=== PATIENT | female | born 1975 | race African-American/Black ===

== ENCOUNTER 2016-12-17 20:41 | Emergency (ER) | payer SELFPAY ==
[~2016-12-17] VITALS: Ht 165.1 cm; Wt 71.0 kg
[~2016-12-17 20:41] MED LIST: DICY1TAB26 PO; PANT20 PO; SUCR1S PO
[2016-12-17 20:44] VITALS: BP 139/81; PULSE 112; RESP 16; TEMP 98.1; O2SAT 100
[2016-12-17] MEDS ORDERED: MORPHINE SULFATE 4 MG/ML INJ IM ONE (21:15)
[2016-12-17 22:21] LABS: AUTOMATED NEUTROPHIL # 2.1 TH/MM3 (1.8-7.7); BASOPHIL # 0.1 TH/MM3 (0-0.2); BASOPHIL % 1.3 % (0.0-2.0); EOSINOPHIL % 0.8 % (0.0-4.0); HEMATOCRIT 31.8 % (35.0-46.0); HEMO FLAGS DIFF FINAL; LYMPH % 44.2 % (9.0-44.0); LYMPHOCYTE # 2.1 TH/MM3 (1.0-4.8); MEAN CELL VOLUME 75.8 FL (80.0-100.0); MEAN CORPUSCULAR HEMOGLOBIN 24.2 PG (27.0-34.0); MONO % 8.6 % (0.0-8.0); NEUT % 45.1 % (16.0-70.0); PLATELET COUNT 398 TH/MM3 (150-450); RED CELL DISTRIBUTION WIDTH 21.8 % (11.6-17.2); WHITE BLOOD COUNT 4.7 TH/MM3 (4.0-11.0)
[2016-12-17 22:46] LABS: ALT (GPT) 19 U/L (10-53)
[2016-12-17 22:47] LABS: ALKALINE PHOSPHATASE 85 U/L (45-117); TOTAL BILIRUBIN ADULT 0.1 MG/DL (0.2-1.0)
[2016-12-17 22:49] LABS: ANION GAP 6 MEQ/L (5-15); AST (GOT) 19 U/L (15-37); BICARBONATE 24.6 MEQ/L (21.0-32.0); BLOOD UREA NITROGEN 14 MG/DL (7-18); CHLORIDE 108 MEQ/L (98-107); GLOMERULAR FILTRATION RATE 95 ML/MIN (>89); POTASSIUM 3.7 MEQ/L (3.5-5.1); SODIUM (NA) 139 MEQ/L (136-145)
[2016-12-17 22:54] LABS: ALCOHOL LESS THAN 3 MG/DL (0-5)
--- NOTE | 2016-12-17 23:02 | PD ---
HPI Chief Complaint: Psychiatric Symptoms Time Seen by Provider: 21:01 Travel History International Travel<30 days: No Contact w/Intl Traveler<30days: No Traveled to known affect area: No History of Present Illness HPI Patient is a 41-year-old female who comes in because she says she is having thoughts of wanting to hurt someone. She says she [facility] to follow[facility]up regarding her fibromyalgia, and made a statement that her pain was so bad she just wanted to shoot herself. She says she is not suicidal at the time , but everyone upset her there. She reports going home and getting a call from her friend about some marital issues. She says this made her very angry and now she wants to hurt someone. She denies any medical complaints other than her chronic pain. She does take psychiatric medications, but says she is out of them. She denies hearing voices. PFSH Past Medical History Anemia: Yes Asthma: Yes Cardiovascular Problems: Yes (LOW BP) Thyroid Disease: Yes ?: Not LMP: CURRENT : 2 Para: 1 : 1 Past Surgical History Cholecystectomy: Yes (2011) Other Surgery: Yes (BILE DUCT STENT) Social History Alcohol Use: Yes (4 TIMES WEEKLY) Tobacco Use: Yes (/ PPD) Substance Use: No Allergies-Medications (Allergen,Severity, Reaction): Coded Allergies: penicillin G (Unverified Allergy, Severe, HIVES, 12/17/16) aspirin (Unverified Allergy, Unknown, ASTHMA ATTACK, 12/17/16) Reported Meds & Prescriptions Reported Meds & Active Scripts Active Bentyl (Dicyclomine HCl) 20 Mg Tab 20 Mg PO Q8 Carafate 1 Gm/10 Ml Udc (Sucralfate) 1 Gm/10 Ml Susp 1 Gm PO TIDACHS Take with water on an empty stomach. To reduce the potential of adversely affecting the absorption of other drugs, take other drugs 2 hours prior to Sucralfate. Protonix (Pantoprazole Sodium) 20 Mg Tab 20 Mg PO DAILY Review of Systems Except as stated in HPI: all other systems reviewed are Neg General / Constitutional: No: Fever, Chills Eyes: No: Blurred Vision HENT: No: Headaches Cardiovascular: No: Chest Pain or Discomfort Respiratory: No: Shortness of Breath Gastrointestinal: No: Nausea, Vomiting Musculoskeletal: Positive: Pain Skin: No Rash, No Change in Pigmentation Neurologic: No: Weakness, Dizziness Psychiatric: Positive: Homicidal Ideation Physical Exam Narrative GENERAL: Awake and alert, tearful. SKIN: Focused skin assessment warm/dry. HEAD: Atraumatic. Normocephalic. EYES: Pupils equal and round. No scleral icterus. EOMI. ENT: Mucous membranes pink and moist. NECK: Trachea midline. No JVD. CARDIOVASCULAR: Regular rate and rhythm. No murmur appreciated. RESPIRATORY: No accessory muscle use. Clear to auscultation. Breath sounds equal bilaterally. GASTROINTESTINAL: Abdomen soft, non-tender, nondistended. MUSCULOSKELETAL: No obvious deformities. No clubbing. No cyanosis. No edema. NEUROLOGICAL: Awake and alert. No obvious cranial nerve deficits. Motor grossly within normal limits. Normal speech. PSYCHIATRIC: Appropriate mood and affect; insight and judgment normal. Data Data Last Documented VS Vital Signs Date Time Temp Pulse Resp B/P (MAP) Pulse Ox O2 Delivery O2 Flow Rate FiO2 12/17/16 20:44 98.1 112 16 139/81 (100) 100 Room Air Orders Orders Complete Blood Count With Diff (12/17/16 21:11) Comprehensive Metabolic Panel (12/17/16 21:11) Ed Urine Pregnancytest Poc (12/17/16 21:11) Psych Screen (12/17/16 21:11) Drug Screen, Random Urine (12/17/16 21:11) Alcohol (Ethanol) (12/17/16 21:11) Morphine Inj (Morphine Inj) (12/17/16 21:15) Labs Laboratory Tests Test 12/17/16 21:30 White Blood Count 4.7 TH/MM3 Red Blood Count 4.20 MIL/MM3 Hemoglobin 10.2 GM/DL Hematocrit 31.8 % Mean Corpuscular Volume 75.8 FL Mean Corpuscular Hemoglobin 24.2 PG Mean Corpuscular Hemoglobin Concent 32.0 % Red Cell Distribution Width 21.8 % Platelet Count 398 TH/MM3 Mean Platelet Volume 7.4 FL Neutrophils (%) (Auto) 45.1 % Lymphocytes (%) (Auto) 44.2 % Monocytes (%) (Auto) 8.6 % Eosinophils (%) (Auto) 0.8 % Basophils (%) (Auto) 1.3 % Neutrophils # (Auto) 2.1 TH/MM3 Lymphocytes # (Auto) 2.1 TH/MM3 Monocytes # (Auto) 0.4 TH/MM3 Eosinophils # (Auto) 0.0 TH/MM3 Basophils # (Auto) 0.1 TH/MM3 CBC Comment DIFF FINAL Differential Comment Blood Urea Nitrogen 14 MG/DL Creatinine 0.80 MG/DL Random Glucose 61 MG/DL Total Protein 7.2 GM/DL Albumin 3.6 GM/DL Calcium Level 8.4 MG/DL Alkaline Phosphatase 85 U/L Aspartate Amino Transf (AST/SGOT) 19 U/L Alanine Aminotransferase (ALT/SGPT) 19 U/L Total Bilirubin 0.1 MG/DL Sodium Level 139 MEQ/L Potassium Level 3.7 MEQ/L Chloride Level 108 MEQ/L Carbon Dioxide Level 24.6 MEQ/L Anion Gap 6 MEQ/L Estimat Glomerular Filtration Rate 95 ML/MIN Urine Opiates Screen NEG Urine Barbiturates Screen NEG Urine Amphetamines Screen NEG Urine Benzodiazepines Screen NEG Urine Cocaine Screen NEG Urine Cannabinoids Screen POS Ethyl Alcohol Level LESS THAN 3 MG/DL MDM Medical Decision Making Medical Screen Exam Complete: Yes Emergency Medical Condition: Yes Medical Record Reviewed: Yes Differential Diagnosis Psychosis versus intoxication versus depression Narrative Course Patient is a 41-year-old female who comes in because she is having homicidal thoughts. Exam shows no abnormalities. Labs sent show no acute abnormalities. Patient given an injection of morphine for her chronic pain. She'll be medically cleared for psychiatric evaluation. Patient is under Walton act. Diagnosis Primary Impression: Homicidal thoughts Condition: Stable Marcela Braun MD Dec 17, 2016 23:02
[2016-12-18] MEDS ORDERED: ACETAMINOPHEN 325 MG TAB PO ONE (06:15)
[2016-12-18 06:41] VITALS: BP 102/54; PULSE 73; RESP 18; O2SAT 97
[2016-12-18] MEDS ORDERED: GABA600T PO (07:45)
[2016-12-18] MEDS ORDERED: GABAPENTIN 300 MG CAP PO SCH (08:30)
[2016-12-18] MEDS: GABAPENTIN 300 MG CAP PO SCH ×2 (08:34→13:08)
--- NOTE | 2016-12-18 13:29 | PD ---
History of Present Illness Chief Complaint: Psychiatric Symptoms Time Seen by Provider: 13:15 Travel History International Travel<30 Days: No Contact w/Intl Traveler<30days: No Known affected area: No Legal Status Legal Status: Walton Act Walton Act Signed By: MARGRET ERWIN MD [facility] Walton Act Comment: 12/17/2016 915 PM History of Present Illness: 41-year-old female brought in under a Walton act for reports of wanting to hurt someone. Patient appears much more calm and cooperative today. She denies any suicidal or homicidal ideation, plan or intent. She no longer wants to hurt someone else. She does explain to this physician her agitation yesterday as having been the result of verbal confrontations with the people around her. She does describe a history of bipolar disorder and states she has been off her medications for a number of weeks. However she wants to return to [facility], where she is treated, and be placed back on her medicines. She would also like treatment for her fibromyalgia. She is verbally dread for safety. There are no psychotic symptoms or cognitive impairments at this time. She is competent to contract for safety and does wish to have outpatient treatment. PFSH Past Medical History Anemia: Yes Asthma: Yes Cardiovascular Problems: Yes (LOW BP) Thyroid Disease: Yes ?: Not LMP: CURRENT : 2 Para: 1 : 1 Past Surgical History Cholecystectomy: Yes (2011) Other Surgery: Yes (BILE DUCT STENT) Psychiatric History Psychiatric History Hx Psychiatric Treatment: Patient with a hx of bipolar dx, schizophrenia and depression. She states she also has a hx of memory loss and rage issues. This physician does not see significant objective clinical evidence of schizophrenia at this time. Certainly, the patient is not complaining of depression at this time. History of Inpatient Treatment: Yes Guns or firearms in home: No Social History Hx Alcohol Use: Yes (4 TIMES WEEKLY) Hx Tobacco Use: Yes (1/2 PPD) Hx Substance Use: Yes (marijuana) Substance Use Type: Alcohol, Marijuana Hx of Substance Use Treatment: No Allergies-Medications (Allergen,Severity, Reaction): Coded Allergies: penicillin G (Unverified Allergy, Severe, HIVES, 12/17/16) aspirin (Unverified Allergy, Unknown, ASTHMA ATTACK, 12/17/16) Reported Meds & Prescriptions Reported Meds & Active Scripts Active Bentyl (Dicyclomine HCl) 20 Mg Tab 20 Mg PO Q8 Carafate 1 Gm/10 Ml Udc (Sucralfate) 1 Gm/10 Ml Susp 1 Gm PO TIDACHS Take with water on an empty stomach. To reduce the potential of adversely affecting the absorption of other drugs, take other drugs 2 hours prior to Sucralfate. Protonix (Pantoprazole Sodium) 20 Mg Tab 20 Mg PO DAILY Reported Gabapentin 600 Mg Tab 600 Mg PO TID Review of Systems Except as stated in HPI: all other systems reviewed are Neg Exam Alert: Yes [place]: Person, Place, Date, Situation Mood: Calm Affect: Euthymic Speech: Clear, Logical Eye Contact: Normal Memory Intact: Immediate, Recent, Remote Insight/Judgement Adequate MDM Medical Decision Making Medical Record Reviewed: Yes Assessment/Plan 41-year-old female brought in under a Walton act for wanting to hurt someone else. At this time she no longer wants to hurt anyone and does not wish to herself. She does want outpatient treatment. Least restrictive alternative determinants the patient can be followed on an outpatient basis and that she is not qualifying for Walton act or involuntary psychiatric hospitalization at this time. She denies any psychotic symptoms and her cognition is intact. She does not qualify for involuntary psychiatric hospitalization. Orders Orders Complete Blood Count With Diff (12/17/16 21:11) Comprehensive Metabolic Panel (12/17/16 21:11) Ed Urine Pregnancytest Poc (12/17/16 21:11) Psych Screen (12/17/16 21:11) Drug Screen, Random Urine (12/17/16 21:11) Alcohol (Ethanol) (12/17/16 21:11) Morphine Inj (Morphine Inj) (12/17/16 21:15) Diet Regular Basic (12/18/16 Breakfast) Acetaminophen (Tylenol) (12/18/16 06:15) Gabapentin (Neurontin) (12/18/16 08:30) Gabapentin (Neurontin) (12/18/16 09:00) Diet Regular Basic (12/18/16 Lunch) Results Vital Signs Date Time Temp Pulse Resp B/P (MAP) Pulse Ox O2 Delivery O2 Flow Rate FiO2 12/18/16 06:41 73 18 102/54 (70) 97 Room Air 12/17/16 20:44 98.1 112 16 139/81 (100) 100 Room Air Laboratory Tests Test 12/17/16 21:30 White Blood Count 4.7 Red Blood Count 4.20 Hemoglobin 10.2 Hematocrit 31.8 Mean Corpuscular Volume 75.8 Mean Corpuscular Hemoglobin 24.2 Mean Corpuscular Hemoglobin Concent 32.0 Red Cell Distribution Width 21.8 Platelet Count 398 Mean Platelet Volume 7.4 Neutrophils (%) (Auto) 45.1 Lymphocytes (%) (Auto) 44.2 Monocytes (%) (Auto) 8.6 Eosinophils (%) (Auto) 0.8 Basophils (%) (Auto) 1.3 Neutrophils # (Auto) 2.1 Lymphocytes # (Auto) 2.1 Monocytes # (Auto) 0.4 Eosinophils # (Auto) 0.0 Basophils # (Auto) 0.1 CBC Comment DIFF FINAL Differential Comment Blood Urea Nitrogen 14 Creatinine 0.80 Random Glucose 61 Total Protein 7.2 Albumin 3.6 Calcium Level 8.4 Alkaline Phosphatase 85 Aspartate Amino Transf (AST/SGOT) 19 Alanine Aminotransferase (ALT/SGPT) 19 Total Bilirubin 0.1 Sodium Level 139 Potassium Level 3.7 Chloride Level 108 Carbon Dioxide Level 24.6 Anion Gap 6 Estimat Glomerular Filtration Rate 95 Urine Opiates Screen NEG Urine Barbiturates Screen NEG Urine Amphetamines Screen NEG Urine Benzodiazepines Screen NEG Urine Cocaine Screen NEG Urine Cannabinoids Screen POS Ethyl Alcohol Level LESS THAN 3 Diagnosis Primary Impression: Other bipolar disorder Condition: Stable Juan Jose Stone MD Dec 18, 2016 13:29
--- NOTE | 2016-12-18 13:56 | PD ---
Physical Exam Narrative I was asked by the psych department to discharge patient after patient was evaluated and Walton acted lifted by psych. Patient was previously medically cleared by previous provider. Please see their documentation for full H&P. Patient denies any homicidal or suicidal ideations. Denies any medical concerns at this time. Patient's only complaint currently is "the hospital for is terrible." Data Data Last Documented VS Vital Signs Date Time Temp Pulse Resp B/P (MAP) Pulse Ox O2 Delivery O2 Flow Rate FiO2 12/18/16 06:41 73 18 102/54 (70) 97 Room Air 12/17/16 20:44 98.1 Orders Orders Complete Blood Count With Diff (12/17/16 21:11) Comprehensive Metabolic Panel (12/17/16 21:11) Ed Urine Pregnancytest Poc (12/17/16 21:11) Psych Screen (12/17/16 21:11) Drug Screen, Random Urine (12/17/16 21:11) Alcohol (Ethanol) (12/17/16 21:11) Morphine Inj (Morphine Inj) (12/17/16 21:15) Diet Regular Basic (12/18/16 Breakfast) Acetaminophen (Tylenol) (12/18/16 06:15) Gabapentin (Neurontin) (12/18/16 08:30) Gabapentin (Neurontin) (12/18/16 09:00) Diet Regular Basic (12/18/16 Lunch) Labs Laboratory Tests Test 12/17/16 21:30 White Blood Count 4.7 TH/MM3 Red Blood Count 4.20 MIL/MM3 Hemoglobin 10.2 GM/DL Hematocrit 31.8 % Mean Corpuscular Volume 75.8 FL Mean Corpuscular Hemoglobin 24.2 PG Mean Corpuscular Hemoglobin Concent 32.0 % Red Cell Distribution Width 21.8 % Platelet Count 398 TH/MM3 Mean Platelet Volume 7.4 FL Neutrophils (%) (Auto) 45.1 % Lymphocytes (%) (Auto) 44.2 % Monocytes (%) (Auto) 8.6 % Eosinophils (%) (Auto) 0.8 % Basophils (%) (Auto) 1.3 % Neutrophils # (Auto) 2.1 TH/MM3 Lymphocytes # (Auto) 2.1 TH/MM3 Monocytes # (Auto) 0.4 TH/MM3 Eosinophils # (Auto) 0.0 TH/MM3 Basophils # (Auto) 0.1 TH/MM3 CBC Comment DIFF FINAL Differential Comment Blood Urea Nitrogen 14 MG/DL Creatinine 0.80 MG/DL Random Glucose 61 MG/DL Total Protein 7.2 GM/DL Albumin 3.6 GM/DL Calcium Level 8.4 MG/DL Alkaline Phosphatase 85 U/L Aspartate Amino Transf (AST/SGOT) 19 U/L Alanine Aminotransferase (ALT/SGPT) 19 U/L Total Bilirubin 0.1 MG/DL Sodium Level 139 MEQ/L Potassium Level 3.7 MEQ/L Chloride Level 108 MEQ/L Carbon Dioxide Level 24.6 MEQ/L Anion Gap 6 MEQ/L Estimat Glomerular Filtration Rate 95 ML/MIN Urine Opiates Screen NEG Urine Barbiturates Screen NEG Urine Amphetamines Screen NEG Urine Benzodiazepines Screen NEG Urine Cocaine Screen NEG Urine Cannabinoids Screen POS Ethyl Alcohol Level LESS THAN 3 MG/DL MDM Supervised Visit with LETITIA: No Narrative Course Patient in no obvious distress upon re-evaluation. Any questions/concerns in reference to patient diagnosis/condition discussed and clarified prior to patient's discharge. Reinforced sheer importance of close follow up with patient 's primary physician or primary care clinic and [facility]. Instructed patient to return to ED immediately, if symptoms return/worsen. Patient showed understanding of above instructions. Further instructions and recommendations were detailed in discharge paperwork. Patient ambulated without difficulty out of ED at discharge. Diagnosis Primary Impression: Other bipolar disorder Referrals: [facility] Instructions: General Instructions Additional Instruction: Follow-up with your primary care physician and [facility] next week for further evaluation. Return to the emergency department if symptoms get worse. Disposition: 01 DISCHARGE HOME Condition: Stable Jeremias Braxton Dec 18, 2016 13:56
== END 2016-12-18 14:50 | disposition home or self-care (01) ==
LOC: NEPD 20:41 → NEPJ 12-18 14:50
DX: F31.9 Bipolar disorder, unspecified (principal); M79.7 Fibromyalgia; D64.9 Anemia, unspecified; J45.909 Unspecified asthma, uncomplicated; E07.9 Disorder of thyroid, unspecified; F17.200 Nicotine dependence, unspecified, uncomplicated; Z79.899 Other long term (current) drug therapy; Z88.0 Allergy status to penicillin; Z88.6 Allergy status to analgesic agent
CPT/HCPCS: 80053; 80307; 84703; 85025; 96372; 99284; J2270